=== PATIENT | male | born 1960 | race Native Hawaiian/Other Pacific Islander ===

== ENCOUNTER 2017-04-16 16:21 | Emergency (ER) | payer SELFPAY ==
[2017-04-16] MEDS ORDERED: TETRACAINE HCL 0.5% OPH SOLN 2 ML OU ONE (16:25)
[2017-04-16 16:29] VITALS: BP 126/69
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
== END 2017-04-16 17:24 | disposition home or self-care (01) ==
LOC: ER 16:21
DX: S05.01XA Injury of conjunctiva and corneal abrasion without foreign body, right eye, initial encounter (principal); H15.101 Unspecified episcleritis, right eye; W20.8XXA Other cause of strike by thrown, projected or falling object, initial encounter; Y92.810 Car as the place of occurrence of the external cause; F17.200 Nicotine dependence, unspecified, uncomplicated
CPT/HCPCS: 99283

== ENCOUNTER 2017-11-20 18:04 | Emergency (ER) | payer OTHER ==
[2017-11-20 18:10] VITALS: BP 135/82
[2017-11-20] MEDS ORDERED: KETOROLAC TROMETHAMINE INJ/PF 30 MG/1 ML SDV IM ONE (18:35)
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
== END 2017-11-20 19:54 | disposition home or self-care (01) ==
LOC: ER 18:04
DX: M25.551 Pain in right hip (principal); M54.5 Low back pain; G89.29 Other chronic pain; M54.9 Dorsalgia, unspecified; V87.7XXA Person injured in collision between other specified motor vehicles (traffic), initial encounter; F17.210 Nicotine dependence, cigarettes, uncomplicated
CPT/HCPCS: 99283; 96372; 73502; 72110; J1885

== ENCOUNTER 2020-01-09 10:45 | Emergency (ER) | payer OTHER ==
--- NOTE | 2020-01-09 11:49 | ER Document Report ---
ED Medical Screen (RME) - General Chief Complaint: Feet Swelling Stated Complaint: FEET SWELLING Time Seen by Provider: 01/09/20 11:43 Primary Care Provider: MADELAINE SOW MD [Primary Care Provider] - Follow up as needed Mode of Arrival: Ambulatory Information source: Patient Notes: HPI; 59-year-old male presents emergency room complaining of bilateral lower extremity edema for the past 2 days. Has any shortness of breath, no difficulty breathing. No history of CHF. No recent travel. No dietary changes. No sedentary lifestyle. PE: Alert and oriented x3. Mild distress noted. Lungs: Clear to auscultation without rales, rhonchi, wheezes. Heart: Regular rate and rhythm without murmurs, rubs, gallops. 1+ bilateral pitting edema noted. Bilateral pedal pulses. I have greeted and performed a rapid initial assessment of this patient. A comprehensive ED assessment and evaluation of the patient, analysis of test results and completion of the medical decision making process will be conducted by additional ED providers. I have specifically instructed the patient or family members with the patient to immediately return to any nursing staff should anything change in the patient's condition or with their chief complaint. TRAVEL OUTSIDE OF THE [place] IN LAST 30 DAYS: No - Related Data Allergies/Adverse Reactions: No Known Allergies Allergy (Verified 11/20/17 18:59) Home Medications: gabapentin, hydrocodone Past Medical History - Social History Chew tobacco use (# tins/day): No Frequency of alcohol use: None Drug Abuse: None Renal/ Medical History: Denies: Hx Peritoneal Dialysis GI Medical History: Reports: Hx Gastroesophageal Reflux Disease, Hx Ulcer, Hx Endoscopy. Denies: Hx Colonoscopy Musculoskeltal Medical History: Reports Hx Musculoskeletal Deformity, Reports Hx Musculoskeletal Trauma Traumatic Medical History: Reports: Hx Fractures - L3 compression fracture, Hx Spine Fracture - L3 compression fracture Past Surgical History: Reports: Hx Appendectomy - Immunizations Hx Diphtheria, Pertussis, Tetanus Vaccination: Yes - today Physical Exam - Vital signs Vitals: Temp Pulse Resp BP Pulse Ox 98.2 F 84 18 136/73 H 99 01/09/20 10:50 01/09/20 10:50 01/09/20 10:50 01/09/20 10:50 01/09/20 10:50 Course - Vital Signs Vital signs: Temp Pulse Resp BP Pulse Ox 98.2 F 84 18 136/73 H 99 01/09/20 10:50 01/09/20 10:50 01/09/20 10:50 01/09/20 10:50 01/09/20 10:50 Doctor's Discharge - Discharge Referrals: MADELAINE SOW MD [Primary Care Provider] - Follow up as needed
--- NOTE | 2020-01-09 12:21 | RADIOLOGY REPORT (SQ) ---
EXAM DESCRIPTION: CHEST 2 VIEWS IMAGES COMPLETED DATE/TIME: 01/09/2020 12:00 pm REASON FOR STUDY: edema COMPARISON: None. TECHNIQUE: Frontal and lateral radiographic views of the chest acquired. NUMBER OF VIEWS: Two view. LIMITATIONS: None. FINDINGS: LUNGS AND PLEURA: No pneumothorax. Bilateral interstitial prominence. No consolidation o r pleural effusion. MEDIASTINUM AND HILAR STRUCTURES: No contour abnormalities. HEART AND VASCULAR STRUCTURES: Heart normal size. BONES: No acute findings. HARDWARE: None in the chest. OTHER: No other significant finding. IMPRESSION: Bilateral interstitial prominence, this may reflect an acute atypical infectious process or pulmonary edema, or possible chronic interstitial disease given lack of comparison images. TECHNICAL DOCUMENTATION: JOB ID: [id number] [id number] 2010 [employer]- All Rights Reserved Reading location - IP/workstation name: [employer]
[2020-01-09 12:31] LABS: ABSOLUTE BASOPHILS # (AUTO) 0.1 10^3/uL (0.0-0.2); ABSOLUTE EOSINOPHILS # (AUTO) 0.4 10^3/uL (0.0-0.6); ABSOLUTE LYMPHOCYTES (AUTO) 3.3 10^3/uL (0.5-4.7); ABSOLUTE MONOCYTES (AUTO) 0.6 10^3/uL (0.1-1.4); ABSOLUTE NEUT (AUTO) 4.5 10^3/uL (1.7-8.2); BASOPHILS % (AUTO) 0.9 % (0-2); HEMATOCRIT 43.2 % (37.9-51.0); HEMOGLOBIN 14.8 g/dL (13.5-17.0); LYMPHOCYTES % (AUTO) 36.6 % (13-45); MEAN CORPUSCULAR HEMOGLOBIN 29.7 pg (27.0-33.4); MEAN CORPUSCULAR HGB CONC 34.3 g/dL (32.0-36.0); MEAN CORPUSCULAR VOLUME 87 fl (80-97); MONOCYTES % (AUTO) 6.7 % (3-13); PLATELET COUNT 274 10^3/uL (150-450); RED BLOOD COUNT 4.98 10^6/uL (4.35-5.55); RED CELL DISTRIBUTION WIDTH 13.3 % (11.5-14.0); SEGMENTED NEUTROPHILS % (AUTO) 50.8 % (42-78); TOTAL CELLS COUNTED % (AUTO) 100 %; WHITE BLOOD COUNT 8.9 10^3/uL (4.0-10.5)
[2020-01-09 12:54] LABS: ALBUMIN 4.3 g/dL (3.5-5.0); ALKALINE PHOSPHATASE 126 U/L (38-126); ANION GAP 7 (5-19); ASPARTATE AMINO TRANSFERASE 21 U/L (17-59); BILIRUBIN,TOTAL 0.4 mg/dL (0.2-1.3); BLOOD UREA NITROGEN 14 mg/dL (7-20); CALCIUM 9.2 mg/dL (8.4-10.2); CARBON DIOXIDE 27 mmol/L (22-30); CHLORIDE 106 mmol/L (98-107); GLUCOSE 85 mg/dL (75-110); POTASSIUM 3.8 mmol/L (3.6-5.0); TOTAL PROTEIN 7.3 g/dL (6.3-8.2)
--- NOTE | 2020-01-09 15:49 | ER Document Report ---
ED General - General Chief Complaint: Feet Swelling Stated Complaint: FEET SWELLING Time Seen by Provider: 01/09/20 11:43 Primary Care Provider: MADELAINE OLIVAREZ MD [Primary Care Provider] - Follow up as needed Mode of Arrival: Ambulatory Information source: Patient Notes: 01/09/20 11:44 - ED Nursing Note by DUKE AWAD Num: [id number] : 1960 Patient Age: 59 pt comes to ed from home via pov brought by self for c/o 2day onset BLE swelling. pt denies cp, sob, or hx of CHF. 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 no change in diet. Cheryls notes HPI; 59-year-old male presents emergency room complaining of bilateral lower extremity edema for the past 2 days. Has any shortness of breath, no difficulty breathing. No history of CHF. No recent travel. No dietary changes. No sedentary lifestyle. PE: Alert and oriented x3. Mild distress noted. Lungs: Clear to auscultation without rales, rhonchi, wheezes. Heart: Regular rate and rhythm without murmurs, rubs, gallops. 1+ bilateral pitting edema noted. Bilateral pedal pulses. my notes 59-year-old male arrives with 3-day history of bilateral leg edema. 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 Madelaine Olivarez as his family doctor and sees him every 3 months. Patient has had edema in the past and when he lays down at nighttime the edema goes away. He was told he had some increased blood pressure one time at Dr. Olivarez's office but the next visit his blood pressure is normal and today patient's blood pressure is normal. He reports he eats salty foods while out crabbing. He also uses Bactroban on his chigger bites of his arms wrists and legs. Patient also mentions that he has pterygiums of bilateral eyes and he says he got this from being out on the water. 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 I advised him to see Dr. Alize Huber across the street. He reports she used to be old houses and built Alize Huber's house and also her daughter's house as well. TRAVEL OUTSIDE OF THE [place] IN LAST 30 DAYS: No - HPI Onset: Other - 3 days Quality of pain: Achy Severity: Mild Pain Level: 1 Associated symptoms: None Exacerbated by: Movement Relieved by: Denies Similar symptoms previously: Yes Recently seen / treated by doctor: Yes - Related Data Allergies/Adverse Reactions: No Known Allergies Allergy (Verified 11/20/17 18:59) Home Medications: gabapentin, hydrocodone Past Medical History - General Information source: Patient - Social History Smoking Status: Current Every Day Smoker Cigarette use (# per day): Yes Chew tobacco use (# tins/day): No Smoking Education Provided: Yes Frequency of alcohol use: None Drug Abuse: None Lives with: Family Family History: Reviewed & Not Pertinent Patient has suicidal ideation: No Patient has homicidal ideation: No Renal/ Medical History: Denies: Hx Peritoneal Dialysis GI Medical History: Reports: Hx Gastroesophageal Reflux Disease, Hx Ulcer, Hx Endoscopy. Denies: Hx Colonoscopy Musculoskeletal Medical History: Reports Hx Musculoskeletal Deformity, Reports Hx Musculoskeletal Trauma Traumatic Medical History: Reports: Hx Fractures - L3 compression fracture, Hx Spine Fracture - L3 compression fracture Past Surgical History: Reports: Hx Appendectomy - Immunizations Hx Diphtheria, Pertussis, Tetanus Vaccination: Yes - today Review of Systems - Review of Systems Constitutional: No symptoms reported EENT: No symptoms reported Cardiovascular: No symptoms reported Respiratory: No symptoms reported Gastrointestinal: No symptoms reported Genitourinary: No symptoms reported Male Genitourinary: No symptoms reported Musculoskeletal: See HPI, Leg swelling, Ankle swelling Skin: No symptoms reported Hematologic/Lymphatic: No symptoms reported Neurological/Psychological: No symptoms reported Physical Exam - Vital signs Vitals: Temp Pulse Resp BP Pulse Ox 98.2 F 84 18 136/73 H 99 01/09/20 10:50 01/09/20 10:50 01/09/20 10:50 01/09/20 10:50 01/09/20 10:50 Interpretation: Normal - General General appearance: Appears well - HEENT Head: Normocephalic Eyes: Normal Conjunctiva: Other - l medial and lateral pterygium of both the left and right eyes Pupils: PERRL Mucous membranes: Normal Pharynx: Normal Neck: Normal - Respiratory Respiratory status: No respiratory distress Chest status: Nontender Breath sounds: Normal Chest palpation: Normal - Cardiovascular Rhythm: Regular Heart sounds: Normal auscultation Murmur: No - Abdominal Inspection: Normal Distension: No distension Bowel sounds: Normal Tenderness: Nontender Organomegaly: No organomegaly - Rectal Prostate: Other - deferred - Genitourinary Scrotum: Other - deferred - Back Back: Normal - Extremities General upper extremity: Normal inspection General lower extremity: Edema - osito legs - Neurological Neuro grossly intact: Yes Cognition: Normal Orientation: AAOx4 Cristina Coma Scale Eye Opening: Spontaneous [place] Coma Scale Verbal: Oriented [place] Coma Scale Motor: Obeys Commands [place] Coma Scale Total: 15 Speech: Normal Motor strength normal: LUE, RUE, LLE, RLE Sensory: Normal - Psychological Associated symptoms: Normal affect - Skin Skin Temperature: Warm Skin Moisture: Dry Skin Color: Other - Multiple erythematous macular and papular lesions over his wrist and forearms and legs some of which appear to be infected. He reports he applies Bactroban to the lesions Course - Vital Signs Vital signs: Temp Pulse Resp BP Pulse Ox 98.2 F 84 18 136/73 H 99 01/09/20 10:50 01/09/20 10:50 01/09/20 10:50 01/09/20 10:50 01/09/20 10:50 - Laboratory Result Diagrams: 01/09/20 12:05 01/09/20 12:05 Discharge - Discharge Clinical Impression: Leg edema, Pterygium of both eyes Condition: Good Disposition: HOME, SELF-CARE Additional Instructions: Follow-up with personal doctor Dr. Ceron return to ER as needed clean legs and wrist and forearms with Hibiclens soap take medicines as directed encourage fluids apply Bactroban to your skin wounds. See Alize Huber about your eye pterygium. Prescriptions: Hydroxyzine HCl [Atarax 10 mg Tablet] 10 mg PO TID PRN #30 tablet PRN Reason: Prednisone [Deltasone 20 mg Tablet] 1 tab PO DAILY 5 Days #5 tablet Levofloxacin [Levaquin 500 mg Tablet] 500 mg PO DAILY #5 tablet Referrals: MADELAINE OLIVAREZ MD [Primary Care Provider] - Follow up as needed
[2020-01-09 16:36] VITALS: BP 130/68
== END 2020-01-09 16:58 | disposition home or self-care (01) ==
LOC: ER 10:45
DX: H11.003 Unspecified pterygium of eye, bilateral (principal); R60.0 Localized edema; F17.210 Nicotine dependence, cigarettes, uncomplicated
CPT/HCPCS: 36415; 71046; 80053; 83880; 85025; 99283

== ENCOUNTER 2020-03-19 20:24 | Emergency (ER) | payer SELFPAY ==
[2020-03-19 21:16] VITALS: BP 131/90
[2020-03-19] MEDS ORDERED: IBUPROFEN 600 MG TABLET PO ONE (23:20)
== END 2020-03-19 23:31 | disposition left against medical advice (07) ==
LOC: ER 20:24
DX: Z53.21 Procedure and treatment not carried out due to patient leaving prior to being seen by health care provider (principal)